=== PATIENT | female | born 1995 | race Two or more races ===

== ENCOUNTER 2017-02-28 20:30 | Emergency (ER) | payer SELFPAY | END 2017-02-28 22:13 | disposition home or self-care (01) | LOC: ER 20:30 | DX: S60.222A Contusion of left hand, initial encounter (principal); W01.198A Fall on same level from slipping, tripping and stumbling with subsequent striking against other object, initial encounter; Y93.89 Activity, other specified; Y92.89 Other specified places as the place of occurrence of the external cause; Y99.8 Other external cause status | CPT/HCPCS: 73130; 99284 ==

== ENCOUNTER 2017-10-16 22:19 | Emergency (ER) | payer SELFPAY ==
[~2017-10-16] VITALS: Ht 172.7 cm; Wt 108.9 kg
[~2017-10-16 22:19] MED LIST: SULF1TAB24 PO
[2017-10-16 23:02] VITALS: BP 140/73
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
[2017-10-17 00:01] LABS: BILIRUBIN,URINE NEGATIVE (NEG); CLARITY,URINE CLEAR; COLOR,URINE YELLOW; NITRITE,URINE NEGATIVE (NEG); PROTEIN,URINE NEGATIVE (NEG-TRACE)
[2017-10-17 00:32] LABS: BACTERIA,URINE FEW /HPF (0-FEW); RBC,URINE OCC /HPF (0-2); SQUAMOUS EPITHELIAL CELL,UR FEW /LPF; WBC,URINE TNTC /HPF (0-4)
[2017-10-17] MEDS: CEPHALEXIN 250 MG CAPSULE. PO ONE (01:10)
[2017-10-17] MEDS: PHENAZOPYRIDINE 200 MG TABLET. PO ONE (01:10)
[2017-10-17] MEDS ORDERED: PHEN100T82 PO (01:14)
[2017-10-17] MEDS ORDERED: CEPH-264 PO (01:14)
== END 2017-10-17 01:25 | disposition home or self-care (01) ==
LOC: ER 22:19
DX: N39.0 Urinary tract infection, site not specified (principal)
CPT/HCPCS: 81001; 81025; 87086; 87491; 87591; 99284

== ENCOUNTER 2017-11-18 23:21 | Emergency (ER) | payer SELFPAY ==
[~2017-11-18] VITALS: Ht 170.2 cm; Wt 104.3 kg
[~2017-11-18 23:21] MED LIST changes: +CEPH-264 PO; +PHEN100T82 PO
[2017-11-18 23:28] VITALS: BP 139/61
[2017-11-18] MEDS ORDERED: CETI10TA22 PO (23:43)
[2017-11-18] MEDS ORDERED: PRED50TA PO (23:43)
[2017-11-18] MEDS ORDERED: TRIA15OI TP (23:43)
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
[2017-11-18] MEDS: CETIRIZINE HCL 10 MG TABLET. PO ONE (23:51)
[2017-11-18] MEDS: predniSONE 20 MG TABLET PO ONE (23:51)
== END 2017-11-18 23:54 | disposition home or self-care (01) ==
LOC: ER 23:21
DX: L25.9 Unspecified contact dermatitis, unspecified cause (principal)
CPT/HCPCS: 99283; J7512

== ENCOUNTER 2018-08-19 10:51 | Emergency (ER) | payer SELFPAY ==
[~2018-08-19] VITALS: Ht 170.2 cm; Wt 117.9 kg
[~2018-08-19 10:51] MED LIST changes: +CETI10TA22 PO; +PRED50TA PO; +TRIA15OI TP
[2018-08-19 11:04] VITALS: BP 135/66
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
[2018-08-19] MEDS ORDERED: DIPHTH,PERTUSS(ACELL),TET TOX 0.5 ML DISP.SYRIN. VAX IM ONE (11:15)
[2018-08-19] MEDS ORDERED: LIDOCAINE WITH 8.4% SOD BICARB 3 ML DISP.SYRIN. INJ ONE (11:15)
[2018-08-19] MEDS ORDERED: HYDR-3164 PO (11:27)
[2018-08-19] MEDS ORDERED: SULF1TAB24 PO (11:27)
== END 2018-08-19 11:36 | disposition home or self-care (01) ==
LOC: ER 10:51
DX: L02.215 Cutaneous abscess of perineum (principal)
CPT/HCPCS: 10060; 56405; 90471; 90715; 99283; 99284

== ENCOUNTER 2018-12-04 19:02 | Emergency (ER) | payer SELFPAY ==
[~2018-12-04] VITALS: Ht 170.2 cm; Wt 127.0 kg
[~2018-12-04 19:02] MED LIST changes: +HYDR-3164 PO
[2018-12-04 19:40] VITALS: BP 123/61
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
--- NOTE | 2018-12-04 20:43 | RAD ---
EXAM: Right ankle 3 views. HISTORY: Right ankle pain after injury. COMPARISON: None. FINDINGS: Three views of the right ankle are obtained. There is soft tissue swelling medially and laterally. No fractures are identified. Alignment is normal. Joint spaces are maintained. IMPRESSION: 1. Soft tissue swelling. No fracture. Electronically signed by: Pat Langley MD (12/04/2018 8:40 PM) [facility]
== END 2018-12-04 20:44 | disposition home or self-care (01) ==
LOC: ER 19:02
DX: S93.401A Sprain of unspecified ligament of right ankle, initial encounter (principal); W10.8XXA Fall (on) (from) other stairs and steps, initial encounter; Y93.89 Activity, other specified; Y92.89 Other specified places as the place of occurrence of the external cause; Y99.8 Other external cause status
CPT/HCPCS: 29515; 73610; 99284-25

== ENCOUNTER 2018-12-08 20:51 | Emergency (ER) | payer SELFPAY ==
[~2018-12-08] VITALS: Ht 172.7 cm; Wt 127.0 kg
[2018-12-08 21:13] VITALS: BP 145/87
--- NOTE | 2018-12-08 21:45 | RAD ---
Exam: Right ankle 3 views INDICATION: Trauma TECHNIQUE: Frontal, lateral and oblique views of the right ankle Comparisons: None FINDINGS: Bone mineralization is normal. No acute or healed fractures. Diffuse soft tissue swelling at the ankle is noted. Joint spaces are well-maintained. IMPRESSION: Soft tissue swelling around the ankle without underlying osseous abnormality. Electronically signed by: Coty Anderson MD (12/08/2018 9:42 PM) [facility]
[2018-12-08] MEDS ORDERED: DICL50TA2 PO (22:13)
[2018-12-08] MEDS ORDERED: GABA600T7 PO (22:13)
[2018-12-08] MEDS ORDERED: METH4TAB2 PO (22:13)
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
[2018-12-08] MEDS ORDERED: NAPROXEN 500 MG TABLET PO ONE (22:15)
[2018-12-08] MEDS ORDERED: HYDROcodone/APAP 5/325MG 1 TAB TABLET PO ONE (22:15)
[2018-12-08] MEDS ORDERED: predniSONE 10 MG TABLET PO ONE (22:15)
== END 2018-12-08 22:20 | disposition home or self-care (01) ==
LOC: ER 20:51
DX: S93.401A Sprain of unspecified ligament of right ankle, initial encounter (principal); W10.8XXA Fall (on) (from) other stairs and steps, initial encounter; Y93.89 Activity, other specified; Y92.89 Other specified places as the place of occurrence of the external cause; Y99.8 Other external cause status
CPT/HCPCS: 73610; 99284

== ENCOUNTER 2020-06-27 | Emergency (ER) | payer SELFPAY ==
[~2020-06-27] VITALS: Ht 172.7 cm; Wt 113.6 kg
[~2020-06-27] MED LIST changes: -CETI10TA22 PO; +CETI10TA74 PO; +DICL50TA2 PO; +GABA600T7 PO; +METH4TAB2 PO
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
[2020-06-27 00:36] LABS: BILIRUBIN,URINE NEGATIVE (NEG); CLARITY,URINE CLEAR; COLOR,URINE YELLOW; NITRITE,URINE NEGATIVE (NEG); PROTEIN,URINE NEGATIVE (NEG-TRACE)
[2020-06-27 00:43] LABS: BACTERIA,URINE FEW /HPF (0-FEW); RBC,URINE 0 /HPF (0-2)
[2020-06-27] MEDS ORDERED: KETOROLAC 15 MG/ML VIAL. IVP ONE (01:00)
[2020-06-27] MEDS ORDERED: ONDANSETRON PF 4 MG/2 ML VIAL. IVP ONE (01:00)
[2020-06-27 01:14] LABS: BASO % 0 % (0-3); EOS # 0.2 x10^3/uL (0.0-0.7); EOS % 2 % (0-3); HEMATOCRIT 39.3 % (36.0-47.0); HEMOGLOBIN 13.2 g/dL (12.0-15.5); LYMPH # 0.9 x10^3/uL (1.0-4.8); LYMPH % 7 % (24-48); MEAN CORPUSCULAR HEMOGLOBIN 27 pg (25-35); MEAN CORPUSCULAR HGB CONC 34 g/dL (31-37); MEAN CORPUSCULAR VOLUME 81 fL (79-100); MONO # 0.4 x10^3/uL (0.0-1.1); MONO % 3 % (0-9); NEUT % 88 % (31-73); PLATELET COUNT 324 x10^3/uL (140-400); RED BLOOD COUNT 4.86 x10^6/uL (3.50-5.40); RED CELL DISTRIBUTION WIDTH 13.7 % (11.5-14.5); WHITE BLOOD COUNT 12.5 x10^3/uL (4.0-11.0)
[2020-06-27 01:17] LABS: CALCIUM 8.2 mg/dL (8.5-10.1); CREATININE 0.9 mg/dL (0.6-1.0); GFR 78.3; POTASSIUM 3.5 mmol/L (3.5-5.1)
[2020-06-27 01:24] LABS: ALBUMIN 3.4 g/dL (3.4-5.0); ALBUMIN/GLOBULIN RATIO 0.9 (1.0-1.7); TOTAL BILIRUBIN 0.8 mg/dL (0.2-1.0); TOTAL PROTEIN 7.3 g/dL (6.4-8.2)
[2020-06-27 01:41] LABS: % ATYL 1 % (0-0); % EOS 3 % (0-5); % LYMPHS 8 % (24-48); % MONOS 1 % (0-10); % SEGS 87 % (35-66)
[2020-06-27 01:42] LABS: PLT ESTIMATE ADEQUATE (ADEQUATE)
[2020-06-27] MEDS ORDERED: CONTRAST GIVEN. MC PRN (01:45)
--- NOTE | 2020-06-27 01:58 | RAD ---
CT OF THE ABDOMEN AND PELVIS WITH IV CONTRAST. History: Reason: epigastric pain Comparison:None. Procedure: Contiguous axial images of the abdomen and pelvis were performed after the administration of 75 cc o f Omni 300 IV contrast. Oral contrast: No. Findings: The gallbladder is normal. The appendix is not well seen. There is multiple small to borderline size mesenteric lymph nodes. Liver: Unremarkable Spleen: Unremarkable Pancreas: Unremarkable Adrenal Glands: Unremarkable Kidneys: Unremarkable There is no free air. There is no free fluid. The urinary bladder appears normal. Impression: Minimal mesenteric lymphadenopathy could be lymphadenitis. End Impression PQRS Compliance Statement: One or more of the following individualized dose reduction techniques were utilized for this examinat ion: 1. Automated exposure control 2. Adjustment of the mA and/or kV according to patient size 3. Use of iterative reconstruction technique Electronically signed by: Guicho Frias III, MD (06/27/2020 1:56 AM) [facility]
[2020-06-27 02:00] VITALS: BP 119/58
[2020-06-27] MEDS ORDERED: IOHEXOL 300 MG/ML 100ML VIAL. IV ONE (02:00)
[2020-06-27] MEDS ORDERED: METO10TA81 PO (02:14)
[2020-06-27] MEDS ORDERED: METOCLOPRAMIDE HCL 10 MG/2 ML VIAL. IVP ONE (02:30)
[2020-06-27] MEDS ORDERED: LIDO:MAALOX 1:1 20 ML SINGLE DOSE. SWSW ONE (02:30)
== END 2020-06-27 02:33 | disposition home or self-care (01) ==
LOC: ER
DX: R10.13 Epigastric pain (principal); R11.0 Nausea; F17.200 Nicotine dependence, unspecified, uncomplicated
CPT/HCPCS: 36415; 74177; 80053; 81001; 81025; 83690; 85007; 85025; 96374; 96375; 99285; J1885; J2405; J2765; Q9967